=== PATIENT | male | born 1990 | race Two or more races ===

== ENCOUNTER 2021-06-13 19:14 | Emergency (ER) | payer OTHER ==
[~2021-06-13] VITALS: Ht 170.2 cm; Wt 122.5 kg
[2021-06-13 21:01] VITALS: BP 139/88
--- NOTE | 2021-06-13 21:01 | NUR ---
Patient discharged to home in stable condition. Written and verbal after care instructions given. Patient verbalizes understanding of instruction.
== END 2021-06-13 21:02 | disposition home or self-care (01) ==
LOC: ER 19:18
DX: U07.1 COVID-19 (principal); J06.9 Acute upper respiratory infection, unspecified; J45.909 Unspecified asthma, uncomplicated
CPT/HCPCS: 71045; 87426; 99284; C9803

== ENCOUNTER 2022-10-03 08:30 | Emergency (ER) | payer OTHER ==
[~2022-10-03] VITALS: Ht 170.2 cm; Wt 119.3 kg
--- NOTE | 2022-10-03 08:33 | NUR ---
TO ER BED 12. BIBS C/O LOWER ABDOMINAL PAIN X2DAYS WORSE SINCE LAST NIGHT. -N/D/V. PAIN 10/10 ON PAIN SCALE. ATTACHED TO MONITOR, VITALS ARE WITHIN NORMAL LIMITS. AWAITING MD ORDERS.
--- NOTE | 2022-10-03 08:35 | NUR ---
IV ESTABLISHED R AC 20G. LABS DRAWN AND COLLECTED.
--- NOTE | 2022-10-03 08:40 | NUR ---
PT UNABLE TO URINATE AT THIS TIME, URINAL PROVIDED AT BEDSIDE.
[2022-10-03] MEDS ORDERED: METOCLOPRAMIDE HCL 10 MG/2 ML VIAL ONE (08:41)
[2022-10-03] MEDS ORDERED: KETOROLAC TROMETHAMINE 15 MG/ML VIAL ONE (08:41)
[2022-10-03] MEDS ORDERED: KETOROLAC TROMETHAMINE INJ 30 MG/ML VIAL IV ONE (09:00)
[2022-10-03] MEDS ORDERED: IV NS 0.9% 1,000 ML BAG IV ONE (09:00)
[2022-10-03] MEDS ORDERED: METOCLOPRAMIDE HCL 10 MG/2 ML VIAL IV ONE (09:00)
[2022-10-03 09:18] LABS: BASOPHILS % (AUTO) 0.1 % (0.0-2.0); EOSINOPHILS % (AUTO) 0.4 % (0.0-6.0); HEMATOCRIT 46 % (39-51); HEMOGLOBIN 15.4 g/dL (13.5-17.5); LYMPHOCYTES # (AUTO) 1.6 K/uL (0.8-4.8); LYMPHOCYTES % (AUTO) 12.8 % (20.0-44.0); MEAN CORPUSCULAR HGB CONC 33 g/dl (31.0-36.0); MEAN CORPUSCULAR VOLUME 84 fL (80-96); MONOCYTES # (AUTO) 1.5 K/uL (0.1-1.30); MONOCYTES % (AUTO) 11.7 % (2.0-12.0); NEUTROPHILS # (AUTO) 9.4 K/uL (1.8-8.9); PLATELET COUNT (AUTO) 262 K/uL (150-450); RED BLOOD CELL COUNT(AUTO) 5.51 MIL/uL (4.5-6.0); WHITE BLOOD COUNT (AUTO) 12.6 K/uL (4.3-11.0)
--- NOTE | 2022-10-03 09:35 | NUR ---
PT TAKEN TO CT VIA JOEY
[2022-10-03 09:40] LABS: ALBUMIN 3.5 g/dL (3.4-5.0); BILIRUBIN,DIRECT 0.3 mg/dL (0.0-0.2); BILIRUBIN,TOTAL 1.5 mg/dL (0.2-1.0); CALCIUM, SERUM 9.2 mg/dL (8.5-10.1); POTASSIUM 4.1 mmol/L (3.5-5.1)
[2022-10-03] MEDS ORDERED: CT SWABBABLE VALVE TRANS SET 1 EA INFUS.SET MC ONE (09:45)
[2022-10-03] MEDS ORDERED: IV NS 0.9% 250 ML IV ONE (09:45)
[2022-10-03] MEDS ORDERED: IOHEXOL-300 100 ML VIAL IV ONE (09:45)
[2022-10-03] MEDS ORDERED: SULF1TAB48 PO (10:26)
[2022-10-03] MEDS ORDERED: KETO10TA2 PO (10:26)
--- NOTE | 2022-10-03 10:35 | NUR ---
Patient discharged to home in stable condition. Written and verbal after care instructions given. Patient verbalizes understanding of instruction.IV removed. Catheter intact and site benign. Pressure and 4x4 applied to site. No bleeding noted.
[2022-10-03 10:36] VITALS: BP 124/82
[2022-10-10] MEDS ORDERED: AMOX-430 PO (10:00)
[2022-10-10] MEDS ORDERED: HYDR-4279 PO (10:00)
[2022-10-10] MEDS ORDERED: PANT40SU2 PO (10:00)
== END 2022-10-03 10:37 | disposition home or self-care (01) ==
LOC: ER 08:34
DX: R10.30 Lower abdominal pain, unspecified (principal)
CPT/HCPCS: 99285; 74177; 96374; 71045; 96361; 96375; 85025; 80048; 83605; 83690; 80076; 36415; J2765; J7030; J7050; Q9967; J1885

== ENCOUNTER 2022-10-06 06:42 | Inpatient (IN) | payer OTHER ==
[~2022-10-06] VITALS: Ht 170.2 cm; Wt 119.3 kg
[~2022-10-06 06:42] MED LIST: KETO10TA2 PO; SULF1TAB48 PO
--- NOTE | 2022-10-06 06:57 | NUR ---
PT BIBSELF C/O N/V STARTED LAST NIGHT. PT IS A/O X 4, RR EVEN AND UNLABORED NO SOB NOTED. VSS. NAD. ER MD AT BEDSIDE FOR EVAL.
[2022-10-06] MEDS ORDERED: ONDANSETRON HCL/PF 4 MG/2 ML VIAL IVP ONE (07:00)
[2022-10-06] MEDS ORDERED: IV NS 0.9% 1,000 ML BAG IV ONE (07:00)
[2022-10-06] MEDS ORDERED: ONDANSETRON HCL/PF 4 MG/2 ML VIAL ONE (07:17)
--- NOTE | 2022-10-06 07:27 | NUR ---
RAC 20G IV ESTABLISHED. BLOOD WORK COLLECTED AND SENT TO LAB. LINE FLUSHED. PT TOLERATED WELL
[2022-10-06 07:28] LABS: BASOPHILS % (AUTO) 0.1 % (0.0-2.0); EOSINOPHILS % (AUTO) 0.2 % (0.0-6.0); HEMATOCRIT 45 % (39-51); HEMOGLOBIN 15.3 g/dL (13.5-17.5); MEAN CORPUSCULAR HGB CONC 34 g/dl (31.0-36.0); MEAN CORPUSCULAR VOLUME 82 fL (80-96); MONOCYTES # (AUTO) 1.4 K/uL (0.1-1.30); MONOCYTES % (AUTO) 8.5 % (2.0-12.0); NEUTROPHILS # (AUTO) 13.7 K/uL (1.8-8.9); NEUTROPHILS % (AUTO) 85.2 % (43.0-81.0); PLATELET COUNT (AUTO) 353 K/uL (150-450); RED BLOOD CELL COUNT(AUTO) 5.52 MIL/uL (4.5-6.0)
[2022-10-06 07:39] LABS: CREATININE 1.5 mg/dL (0.6-1.3)
[2022-10-06 07:46] LABS: BILIRUBIN,DIRECT 0.4 mg/dL (0.0-0.2); BILIRUBIN,TOTAL 1.2 mg/dL (0.2-1.0); TOTAL PROTEIN, SERUM 8.7 g/dL (6.4-8.2)
[2022-10-06] MEDS ORDERED: POTASSIUM CL. PREMIX PERIPHER. 50 ML ONE ×2 (08:08→10:17)
[2022-10-06] MEDS: POTASSIUM CL. PREMIX PERIPHER. 50 ML IV SCH ×2 (08:19→09:00)
--- NOTE | 2022-10-06 08:19 | NUR ---
PT PLACED ON SHANK ARCHER
[2022-10-06] MEDS ORDERED: IOHEXOL-300 100 ML VIAL IV ONE (08:23)
[2022-10-06] MEDS ORDERED: IV NS 0.9% 250 ML IV ONE (08:24)
[2022-10-06] MEDS ORDERED: CT SWABBABLE VALVE TRANS SET 1 EA INFUS.SET MC ONE (08:24)
--- NOTE | 2022-10-06 08:32 | NUR ---
PT TO CT SCAN AT THIS TIME
[2022-10-06] MEDS ORDERED: PIPERACILLIN /TAZOBACTAM 3.375 G in IV D5W 50 ML IV ONE (09:00)
--- NOTE | 2022-10-06 09:00 | NUR ---
PT BACK FROM CT SCAN
--- NOTE | 2022-10-06 09:30 | NUR ---
MOVE SHEET SUBMITTED.
--- NOTE | 2022-10-06 09:33 | NUR ---
COVID SWAB OBTAINED AND SENT TO LAB
[2022-10-06] MEDS ORDERED: PIPERACI/TAZO 3.375GM/D5W 50ML PB IV ONE (09:34)
--- NOTE | 2022-10-06 10:30 | NUR ---
PT RESTING COMFORTABLY IN STRETCHER. PT NOTED TO HAVE HICCUPS, PT DENIES NAUSEA. MADE AWARE
--- NOTE | 2022-10-06 11:07 | NUR ---
DR. KAUFMAN SPEAKING WITH DR. JOY.
--- NOTE | 2022-10-06 12:06 | NUR ---
PER BABY NURSE HARJIT NO NG TUBE IS NEEDED AT THIS TIME
--- NOTE | 2022-10-06 12:24 | NUR ---
GOT BED 307-1 ADMITTING INFORMED.
[2022-10-06] MEDS ORDERED: Z GUARD REMEDY 4 OZ OINT TP PRN (12:30)
[2022-10-06] MEDS ORDERED: ACETAMINOPHEN 650 MG/SUPP.RECT RC PRN (12:30)
[2022-10-06] MEDS ORDERED: ONDANSETRON HCL/PF 4 MG/2 ML VIAL IVP PRN (12:30)
[2022-10-06] MEDS ORDERED: LORAZEPAM INJ 2 MG/ML VIAL IV PRN (12:30)
--- NOTE | 2022-10-06 12:33 | NUR ---
REPORT GIVEN TO HERMELINDO HARMAN ON THE 3RD FLOOR
[2022-10-06] MEDS ORDERED: PIPERACILLIN /TAZOBACTAM 3.375 G in IV D5W 50 ML IV SCH (13:00)
[2022-10-06] MEDS ORDERED: MORPHINE SULFATE INJ 4 MG/ML DISP.SYRIN IV PRN (13:00)
--- NOTE | 2022-10-06 13:30 | NUR ---
MS ADMIT FROM ER AFTER REPORT RECEIVED FROM TREASURE HARMAN. PATIENT ORIENTED TO RN, UNIT, ROOM, BED, AND UNIT POLICIES REGARDING PATIENT CARE AND VISITING HOURS. PATIENT ENCOURAGED TO CALL IF THEY NEED SOMETHING. ALL QUESTIONS AND CONCERNS ADDRESSED. PATIENT VERBALIZED UNDERSTANDING.
[2022-10-06] MEDS: IV NS 0.9% 1,000 ML IV PRN (13:53)
[2022-10-06] MEDS: PANTOPRAZOLE 40 MG VIAL IV SCH (13:53)
[2022-10-06] MEDS: PIPERACILLIN /TAZOBACTAM 3.375 G in IV D5W 100 ML IV SCH (15:48)
[2022-10-06 16:35] VITALS: BP 149/90
--- NOTE | 2022-10-06 18:57 | NUR ---
CHANGE OF SHIFT REPORT PT RESTING COMFORTABLY IN BED. NO S/S OR C/O PAIN OR DISTRESS NOTED SIDE RAILS UP X2, CALL LIGHT LEFT WITHIN REACH. PT KEPT CLEAN, DRY, AND COMFORTABLE. NO SIGNIFICANT CHANGES SINCE PREVIOUS SHIFT. WILL GIVE REPORT TO CHYNA HARMAN.
--- NOTE | 2022-10-06 19:15 | NUR ---
MS RN OPENING NOTES - RECEIVED PATIENT SLEEPING, EASY TO AROUSE. ON BEDSIDE. PATIENT IS A/O X4. BREATHING EVEN AND NON-LABORED ON ROOM AIR. NOT IN APPARENT DISTRESS. DENIES PAIN, NAUSEA AND VOMITING AT THIS TIME. HAS RIGHT ANTECUBITAL IV ACCESS #20G WITH IVPB ZOSYN RUNNING AT 25 ML/HR. NO S/S OF INFILTRATION NOTED. CURRENTLY NPO BUT OKAY TO HAVE ICE CHIPS. SAFETY PRECAUTIONS IN PLACE: BED LOCKED AND IN LOW POSITION, SIDE RAILS UP X2, CALL LIGHT WITHIN REACH. WILL CONTINUE PLAN OF CARE.
[2022-10-06 20:00] VITALS: BP 131/88
[2022-10-07] MEDS: PIPERACILLIN /TAZOBACTAM 3.375 G in IV D5W 100 ML IV SCH ×3 (00:44→16:40)
--- NOTE | 2022-10-07 03:04 | NUR ---
PATIENT VERBALIZED HE IS ABLE TO PASS GAS X3 WITHOUT DIARRHEA. STILL DENIES PAIN, NAUSEA AND VOMITING. PATIENT EDUCATION ABOUT MONITORING I&O, VERBALIZED UNDERSTANDING.
[2022-10-07 06:06] LABS: BASOPHILS % (AUTO) 0.3 % (0.0-2.0); HEMATOCRIT 42 % (39-51); HEMOGLOBIN 13.5 g/dL (13.5-17.5); LYMPHOCYTES # (AUTO) 1.5 K/uL (0.8-4.8); LYMPHOCYTES % (AUTO) 12.1 % (20.0-44.0); MEAN CORPUSCULAR HGB CONC 33 g/dl (31.0-36.0); MEAN CORPUSCULAR VOLUME 86 fL (80-96); MONOCYTES # (AUTO) 1.4 K/uL (0.1-1.30); MONOCYTES % (AUTO) 11.7 % (2.0-12.0); NEUTROPHILS % (AUTO) 73.9 % (43.0-81.0); PLATELET COUNT (AUTO) 313 K/uL (150-450); RED BLOOD CELL COUNT(AUTO) 4.83 MIL/uL (4.5-6.0); WHITE BLOOD COUNT (AUTO) 12.1 K/uL (4.3-11.0)
[2022-10-07 06:43] LABS: CALCIUM, SERUM 8.8 mg/dL (8.5-10.1); CREATININE 1.2 mg/dL (0.6-1.3); MAGNESIUM 2.7 mg/dL (1.8-2.4); PHOSPHORUS 3.8 mg/dL (2.5-4.9); POTASSIUM 3.4 mmol/L (3.5-5.1)
--- NOTE | 2022-10-07 06:53 | NUR ---
MS RN CLOSING NOTES - PATIENT RESTING IN BED, ABLE TO VERBALIZED NEEDS. NO SOB OR NOTED. NO ACUTE DISTRESS THROUGHOUT THE NIGHT. AFEBRILE. NO NAUSEA AND VOMITING BUT HAD LOOSE BM X1. RIGHT ANTECUBITAL IV ACCESS INTACT, PATENT AND FLUSHING. ALL DUE MEDS GIVEN AND NEEDS ATTENDED. SAFETY PRECAUTIONS MAINTAINED. WILL ENDORSE TO NEXT SHIFT FOR PAMELA.
[2022-10-07] MEDS: IV NS 0.9% 1,000 ML IV PRN (07:29)
--- NOTE | 2022-10-07 07:39 | NUR ---
RN OPENING NOTE - PT AWAKE, AOX4, DENIES PAIN, . PATIENT IS A/O X4. DENIES NAUSEA AND VOMITING AT THIS TIME. HAS RIGHT AC IV ACCESS #20G . IVF - NS AT 125/HR. CURRENTLY NPO BUT OKAY / ICE CHIPS. SAFETY PRECAUTIONS IN PLACE: BED LOCKED AND IN LOW POSITION, SIDE RAILS UP X2, CALL LIGHT WITHIN REACH. WILL CONTINUE MONITOR /. ASSIST
[2022-10-07 08:00] VITALS: BP 118/64
[2022-10-07] MEDS: PANTOPRAZOLE 40 MG VIAL IV SCH (08:52)
--- NOTE | 2022-10-07 11:56 | NUR ---
PER RAD DR JUSTIN, NOT ENOUGH FLUID TO DRAIN GHAZAL SHARMA NOTIFIED
[2022-10-07] MEDS: POTASSIUM CL. PREMIX PERIPHER. 50 ML IV SCH ×2 (12:54→14:30)
[2022-10-07 16:00] VITALS: BP 118/79
--- NOTE | 2022-10-07 18:27 | NUR ---
RN CLOSING NOTE - CT CANCELED DUE TO RADIOLOGIST THINKING NOT ENOUGH FLUID TO ASPIRATE. SURGICAL LOG CLERK SAW PT. DECIDING ON TREATMENT. PT AWAKE, AOX4, DENIES PAIN, . PATIENT IS A/O X4. DENIES NAUSEA AND VOMITING AT THIS TIME. HAS RIGHT AC IV ACCESS #20G . IVF - NS AT 125/HR. CURRENTLY NPO BUT OKAY / ICE CHIPS. POTASSIUM REPLACED, SAFETY PRECAUTIONS IN PLACE: BED LOCKED AND IN LOW POSITION, SIDE RAILS UP X2, CALL LIGHT WITHIN REACH. WILL CONTINUE MONITOR /. ASSIST
--- NOTE | 2022-10-07 19:30 | NUR ---
MS RN OPENING NOTE RECEIVED PATIENT AWAKE, WITH AT BEDSIDE. PATIENT IS A/O X4, ABLE TO VERBALIZE NEEDS. BREATHING EVEN AND NON-LABORED, ON ROOM AIR. NO RESPIRATORY DISTRESS. DENIES PAIN, NAUSEA AND VOMITING AT THIS TIME. HAS RIGHT ANTECUBITAL IV ACCESS #20G WITH NS INFUSING AT 125 ML/HR. NO S/S OF INFILTRATION NOTED. CURRENTLY NPO BUT OKAY TO HAVE ICE CHIPS. SAFETY PRECAUTIONS IN PLACE: BED LOCKED AND IN LOW POSITION, SIDE RAILS UP X2, CALL LIGHT WITHIN REACH. WILL CONTINUE PLAN OF CARE.
[2022-10-07 22:04] VITALS: BP 134/86
[2022-10-08] MEDS: PIPERACILLIN /TAZOBACTAM 3.375 G in IV D5W 100 ML IV SCH ×3 (00:10→15:10)
[2022-10-08 06:17] LABS: BASOPHILS % (AUTO) 0.3 % (0.0-2.0); EOSINOPHILS % (AUTO) 2.2 % (0.0-6.0); HEMATOCRIT 41 % (39-51); HEMOGLOBIN 13.5 g/dL (13.5-17.5); LYMPHOCYTES # (AUTO) 1.4 K/uL (0.8-4.8); LYMPHOCYTES % (AUTO) 14.9 % (20.0-44.0); MEAN CORPUSCULAR HGB CONC 33 g/dl (31.0-36.0); MEAN CORPUSCULAR VOLUME 84 fL (80-96); MONOCYTES # (AUTO) 1.2 K/uL (0.1-1.30); MONOCYTES % (AUTO) 12.9 % (2.0-12.0); NEUTROPHILS # (AUTO) 6.5 K/uL (1.8-8.9); NEUTROPHILS % (AUTO) 69.7 % (43.0-81.0); PLATELET COUNT (AUTO) 322 K/uL (150-450); RED BLOOD CELL COUNT(AUTO) 4.85 MIL/uL (4.5-6.0); WHITE BLOOD COUNT (AUTO) 9.3 K/uL (4.3-11.0)
[2022-10-08 06:52] LABS: POTASSIUM 3.2 mmol/L (3.5-5.1)
--- NOTE | 2022-10-08 06:55 | NUR ---
MS RN CLOSING NOTE PT LEFT LAYING IN BED, AWAKE. NO S/S OF DISTRESS NOTED. NO C/O AT THIS TIME. SAFETY MEASURES IN PLACE. WILL ENDORSE PT TO MORNING SHIFT NURSE FOR PAMELA.
[2022-10-08 08:00] VITALS: BP 133/85
[2022-10-08] MEDS: PANTOPRAZOLE 40 MG VIAL IV SCH (08:06)
[2022-10-08] MEDS ORDERED: POTASSIUM CL. PREMIX PERIPHER. 50 ML IV SCH (11:00)
[2022-10-08] MEDS ORDERED: POTASSIUM CHLORIDE 20 MEQ POWDER PACKET PO ONE (12:00)
[2022-10-08] MEDS: IV NS 0.9% 1,000 ML IV PRN (15:10)
[2022-10-08 16:00] VITALS: BP 114/71
--- NOTE | 2022-10-08 18:12 | NUR ---
END OF SHIFT SUMMARY PATIENT IS A/O X4. SATURATING WELL ON RA. AMBULATORY. INDEPENDENT WITH REPOSITIONING. K 3.2, REPLACED. IV ACCESS ON L HAND #22G, NS RUNNING AT 125 ML/HR. ADVANCED DIET TO CLEARS, TOLERATING WELL. SAFETY MEASURES MAINTAINED. BED IN LOWEST POSITION, BRAKES LOCKED. SIDE RAILS UP X2. CALL LIGHT WITHIN REACH. WILL ENDORSE CONTINUITY OF CARE TO ONCOMING SHIFT.
--- NOTE | 2022-10-08 19:35 | NUR ---
MSRN FULLY AWAKE, VISITOR AT BEDSIDE. NO NEEDS MADE, REMINDED TO CALL STAFF FOR ANY ASSISTANCE OR FURTHER DISCOMFORTS. CALL LIGHT WITHIN REACH. SAFETY PRECAUTIONS INSTRUCTED.
[2022-10-08 20:12] VITALS: BP 122/75
--- NOTE | 2022-10-08 22:30 | NUR ---
MSRN NOTIFIED PATIENT ZOSYN DUE NOT TILL MIDNIGHT. ASSESSED FOR ANY DISCOMFORTS, DENIES ANY PAIN . NO OTHER NEEDS MADE.
--- NOTE | 2022-10-08 23:09 | NUR ---
MSRN ASLEEP, IVF CONTINUED.
[2022-10-09] MEDS: PIPERACILLIN /TAZOBACTAM 3.375 G in IV D5W 100 ML IV SCH ×4 (00:36→23:48)
[2022-10-09 06:19] LABS: BASOPHILS % (AUTO) 0.2 % (0.0-2.0); EOSINOPHILS % (AUTO) 2.9 % (0.0-6.0); HEMATOCRIT 40 % (39-51); HEMOGLOBIN 13.2 g/dL (13.5-17.5); LYMPHOCYTES # (AUTO) 1.3 K/uL (0.8-4.8); LYMPHOCYTES % (AUTO) 14.7 % (20.0-44.0); MEAN CORPUSCULAR HGB CONC 33 g/dl (31.0-36.0); MEAN CORPUSCULAR VOLUME 84 fL (80-96); MONOCYTES % (AUTO) 11.2 % (2.0-12.0); NEUTROPHILS # (AUTO) 6.2 K/uL (1.8-8.9); PLATELET COUNT (AUTO) 322 K/uL (150-450); RED BLOOD CELL COUNT(AUTO) 4.78 MIL/uL (4.5-6.0); WHITE BLOOD COUNT (AUTO) 8.8 K/uL (4.3-11.0)
[2022-10-09 06:46] LABS: CALCIUM, SERUM 8.7 mg/dL (8.5-10.1); CREATININE 0.9 mg/dL (0.6-1.3); POTASSIUM 3.7 mmol/L (3.5-5.1)
--- NOTE | 2022-10-09 07:09 | NUR ---
MSRN REMAINS PAINFREE, TOLERATED CLEAR LIQUIDS. NO N/V WHOLE SHIFT. IVF CONTINUED.
[2022-10-09 08:00] VITALS: BP 115/72
[2022-10-09] MEDS: IV NS 0.9% 1,000 ML IV PRN (08:17)
[2022-10-09] MEDS: PANTOPRAZOLE 40 MG VIAL IV SCH (08:24)
[2022-10-09] MEDS ORDERED: ACETAMINOPHEN 325 MG TABLET PO PRN (09:30)
[2022-10-09 16:00] VITALS: BP 121/71
--- NOTE | 2022-10-09 18:09 | NUR ---
END OF SHIFT SUMMARY PATIENT IS A/O X4. SATURATING WELL ON RA. AMBULATORY. INDEPENDENT WITH REPOSITIONING. IV ACCESS ON L HAND #22G, NS RUNNING AT 125 ML/HR. PATIENT COMPLAINS OF STOMACH ACHE BUT IMPROVED WITH MORPHINE AND TYLENOL. ADVANCED DIET TO SOFT, TOLERATING WELL. SAFETY MEASURES MAINTAINED. BED IN LOWEST POSITION, BRAKES LOCKED. SIDE RAILS UP X2. CALL LIGHT WITHIN REACH. WILL ENDORSE CONTINUITY OF CARE TO ONCOMING SHIFT.
--- NOTE | 2022-10-09 19:45 | NUR ---
MS RN NOTES RECEIVED LAYING ON BED A/O X4,WITH NORMAL BREATHING PATTERN,VISITOR AT BEDSIDE.AMBULATE WITH STEADY GAIT,DENIES ABDOMINAL PAIN AT THE MOMENT,IVF NS AT 125NL/HR RATE INFUSING WELL ON LEFT HAND VIA IV PUMP.SITE PATENT.WILL MONITOR FOR PAIN,CALL LIGHT IN REACH,NEEDS ANTICIPATED.
[2022-10-09 20:00] VITALS: BP 138/76
--- NOTE | 2022-10-10 06:46 | NUR ---
MS RN NOTES WELL RESTED AT NIGHT,NO COMPLAINTS OF ABDOMINAL.IVF IN PROGRESS,SITE PATENT.POSSIBLE DISCHARGE WHEN MEDICALLY STABLE.
--- NOTE | 2022-10-10 07:31 | NUR ---
MS RN OPENING NOTES: Received pt sleeping but easy to awake. On room air, tolerating well. A/O x 4, able to make needs known. IV access in left hand #22g with NS at 125ml/hr, infusing well. Safety measures implemented: bed locked in lowest position, hob elevated, side rails up x 2, call light and tray table within easy reach. Will continue to monitor.
[2022-10-10 07:35] LABS: BASOPHILS % (AUTO) 0.3 % (0.0-2.0); EOSINOPHILS % (AUTO) 0.5 % (0.0-6.0); HEMATOCRIT 43 % (39-51); HEMOGLOBIN 14.3 g/dL (13.5-17.5); LYMPHOCYTES # (AUTO) 0.7 K/uL (0.8-4.8); LYMPHOCYTES % (AUTO) 5.6 % (20.0-44.0); MEAN CORPUSCULAR HGB CONC 33 g/dl (31.0-36.0); MEAN CORPUSCULAR VOLUME 85 fL (80-96); MONOCYTES # (AUTO) 0.6 K/uL (0.1-1.30); MONOCYTES % (AUTO) 4.5 % (2.0-12.0); NEUTROPHILS # (AUTO) 11.9 K/uL (1.8-8.9); NEUTROPHILS % (AUTO) 89.1 % (43.0-81.0); PLATELET COUNT (AUTO) 344 K/uL (150-450); RED BLOOD CELL COUNT(AUTO) 5.09 MIL/uL (4.5-6.0); WHITE BLOOD COUNT (AUTO) 13.3 K/uL (4.3-11.0)
--- NOTE | 2022-10-10 07:55 | NUR ---
RN NOTE Patient verbalized he is anxious and no good sleep last night, Ativan 1mg/0.5mg IV prn given at 0753. Will continue to monitor.
[2022-10-10] MEDS: PIPERACILLIN /TAZOBACTAM 3.375 G in IV D5W 100 ML IV SCH (08:00)
[2022-10-10 08:50] LABS: CALCIUM, SERUM 8.4 mg/dL (8.5-10.1); POTASSIUM 3.7 mmol/L (3.5-5.1)
[2022-10-10] MEDS: PANTOPRAZOLE 40 MG VIAL IV SCH (09:07)
[2022-10-10] MEDS ORDERED: AMOX-430 PO (10:00)
[2022-10-10] MEDS ORDERED: PANT40SU2 PO (10:00)
[2022-10-10] MEDS ORDERED: HYDR-4279 PO (10:00)
--- NOTE | 2022-10-10 11:20 | NUR ---
DISCHARGED NOTES PATIENT DISCHARGED TO HOME IN STABLE CONDITION. A/O X 4, ABLE TO MAKE NEEDS KNOWN. NO N/V AND PAIN NOTED. ON RA, TOLERATING WELL. DISCHARGE PACKET AND INSTRUCTION GIVEN TO PATIENT, VERBALIZED UNDERSTANDING. ALL BELONGINGS ACCOUNTED FOR. IV ACCESS REMOVED, DRY AND CLEAN DRESSING APPLIED ON SITE. MD AND CHARGE NURSE AWARE OF DISCHARGE. PATIENT LEFT THE UNIT AMBULATORY AT 1117.
[2022-10-11] MEDS ORDERED: PANTOPRAZOLE 40 MG/PACK PACK PO SCH (09:00)
== END 2022-10-10 11:15 | disposition home or self-care (01) | DRG 244 ==
LOC: ER 06:44 → MED 12:45
PROVIDERS: ADMIT Nurse Practitioner Acute Care; ATTEND Nurse Practitioner Acute Care
DX: K57.20 Diverticulitis of large intestine with perforation and abscess without bleeding (principal); N17.0 Acute kidney failure with tubular necrosis; E46 Unspecified protein-calorie malnutrition; E87.1 Hypo-osmolality and hyponatremia; E86.1 Hypovolemia; E66.01 Morbid (severe) obesity due to excess calories; Z68.41 Body mass index [BMI] 40.0-44.9, adult; Z87.891 Personal history of nicotine dependence; E87.6 Hypokalemia; R73.03 Prediabetes; Z20.822 Contact with and (suspected) exposure to COVID-19
CPT/HCPCS: 36415; 75989-TC; 80048-TC; 80076-TC; 83605-TC; 83690-TC; 83735-TC; 84100-TC; 85025-TC; 87040-TC; 87081-TC; A4223; C9113; C9803; G0378; J2060; J2270; J2405; J2543; J3480; J7030; J7050; J7060; Q9967